=== PATIENT | male | born 1975 | race Caucasian/White ===

== ENCOUNTER → 2022-06-27 13:57 | Outpatient (BNVA) | payer BC, SELFPAY | PROVIDERS: Visit Provider Psychiatry & Neurology Neurology | DX: Z13.89 Encounter for screening for other disorder (principal) ==

== ENCOUNTER 2022-10-16 15:40 | Outpatient (AMB) | payer BC, SELFPAY ==
[2022-10-16 15:42] VITALS: BP 122/70; PULSE 81; O2SAT 98; BMI 28.1
--- NOTE | 2022-10-16 15:42 | MHC.OFFVIS ---
Intake Vital Signs 10/16/22 15:42 Height 5 ft 10 in Weight 196 lb BMI 28.1 BP 122/70 Blood Pressure Location Rt brachial Position Sitting Pulse 81 Pulse Source Pulse Oximeter Pulse Oximetry (%) 98 Intake Visit Reasons: 2m follow up Migraine Intake Note: pt is here for 2 month f/u and BOTOX Pocket Secretary Assembler Required: No Accompanied by: Self / Same As Patient Allergies No Known Allergies Allergy (Verified 10/16/22 15:42) Medication List - Last Reconciled 10/16/22 by Kenna Landaverde MD cyclobenzaprine 1-2 tabs orally bedtime; dextroamphetamine-amphetamine 10 mg (Adderall) 10 mg PO TID lorazepam 1 mg PO BEDTIME PRN melatonin 3 mg PO BEDTIME PRN testosterone cypionate 100 mg IM Q2W HPI HPI Comments History of Present Illness Details ? 47y/o male comes for treatment of migraines with botox. ??? Most frequent reported adverse reactions following injection of botox for chronic migraine include neck pain (9%), headache(5%), eyelid ptosis(4%), migraine(4%), muscular weakness(4%), musculuskeletal stiffness(4%), bronchitis(3%), injection site pain (3%), musculoskeletal pain(3%), myalgia(3%), facial paresis(2%), HTN(2%) and muscle spasms(2%) were discussed in detail. ??? Botulinum toxin typeA 200units Lot no [id number] expiration May 2025 was diluted with 4 cc of normal saline . ??? Muscles injected- ??? Frontalis 4 sites ??? Procerus 1 site ??? Back Hoe Operator- 2 sites ??? Temporalis- 8 sites ? Cervical paraspinals- 4 sites ??? Trapezius- 6 sites- 10 units each Left masseter- 20 units right zygomaticus 10 units ??? 5 units each in 31 site ??? Total use- 185units ??? Discarded-15units [facility] Medical History (Updated 10/16/22 @ 16:11 by Kenna Landaverde MD) ADD (attention deficit disorder) Chronic migraine without aura Insomnia Migraine Neck pain Snoring Spasmodic torticollis Surgical History Hx of LASIK Family History Mother Diabetes Hyperlipidemia Social History Alcohol intake: current Patient Tobacco Use Status: Never used Tobacco Physical Exam Vital Signs: Last Vital Signs Pulse 81 10/16/22 15:42 BP 122/70 10/16/22 15:42 Pulse Ox 98 10/16/22 15:42 BMI result Body Mass Index 28.1 Const General: cooperative, healthy appearing and comfortable Nutritional Appearance: average body habitus Orientation/consciousness: patient oriented x3 HEENT Head: Yes normal to inspection Eyes Pupils: Equal, round and reactive pupils present Neck Other: tenderness in left splenius, levator trapezius Neuro General: patient oriented x3, tone normal, moves all extremities and no focal motor deficits Cranial nerves: Yes Facial sensation intact/muscles of mastication intact, Yes Equal, round and reactive pupils present, Yes Bilaterally intact EOM present, Yes Nystagmus not present, Yes Normal facial strength present and Yes Midline tongue present Cognition (Neuro): normal cognition Gait exam (Neuro): Normal gait present Coordination: oarftb-ap-fltb test normal Psych Affect: Anxious affect present Office Procedures Botulinum toxin Injection 85003 - Migraine Procedure code (CPT) selection complete Office Meds onabotulinumtoxinA Performing Provider: Kenna Landaverde MD Administered by: Kenna Landaverde MD on 10/16/22 16:12 Dose Route Admin Location Lot Number Expiration Date [facility] Manager Women 185 unit subcut [id number] 05/02/25 0009-5971-67 ALLERGAN/BOTOX Comments: see HPI Assessment & Plan Assessment & Plan (1) Chronic migraine without aura: Code(s): G43.709 - Chronic migraine without aura, not intractable, without status migrainosus (2) Spasmodic torticollis: Code(s): G24.3 - Spasmodic torticollis Plan Patient tolerated the procedure well He will call with any side effects Orders: Orders AMB Botulinum toxin Injection Today G24.3 - Spasmodic torticollis, G43.709 - Chronic migraine without aura, not intractable, without status migrainosus Coding Level of Care Code Est Pt Level 1 (01115) Diagnoses Chronic migraine without aura G43.709 Spasmodic torticollis G24.3 CPT Codes Botox Injection - Botox 3: 65606 - Migraine ([id number])
== END 2022-10-16 16:08 | disposition home or self-care (01) ==
PROVIDERS: Visit Provider Psychiatry & Neurology Neurology
DX: G43.709 Chronic migraine without aura, not intractable, without status migrainosus (principal)
CPT/HCPCS: 64615

== ENCOUNTER → 2022-10-16 15:40 | Outpatient (BNVA) | payer BC, SELFPAY | PROVIDERS: Visit Provider Psychiatry & Neurology Neurology | DX: G43.709 Chronic migraine without aura, not intractable, without status migrainosus (principal); G24.3 Spasmodic torticollis; Z79.899 Other long term (current) drug therapy | CPT/HCPCS: 64615; 99211; J0585 ==

== ENCOUNTER 2022-11-29 15:29 | Outpatient (AMB) | payer BC, SELFPAY ==
--- NOTE | 2022-11-29 15:30 | MHC.PC.OV ---
Vital Signs 11/29/22 15:33 Height 5 ft 10 in Weight 192 lb 8 oz BMI 27.6 BP 100/70 Blood Pressure Location Lt brachial Position Sitting Pulse 79 Pulse Source Pulse Oximeter Pulse Oximetry (%) 97 Oxygen Delivery Method Room Air Intake Visit Reasons: Checkup, lab requests, etc. (been a few years) Intake Note: Patient is here today for re-establishing care. Complaint of headaches and requesting lab order. Furniture Packer Required: No Technical Publications Manager: Not Required per policy Accompanied by: Self / Same As Patient Allergies No Known Allergies Allergy (Verified 11/29/22 16:10) Medication List - Last Reconciled 11/29/22 by Francisco Cortes MD dextroamphetamine-amphetamine 10 mg (Adderall) 10 mg PO TID lorazepam 1 mg PO BEDTIME PRN melatonin 3 mg PO BEDTIME PRN testosterone cypionate 100 mg IM Q2W Tobacco use date assessed: 11/29/22 Dental Screening Dental Screen Date: 11/29/22 Did you have a dental visit in the last 12 months?: Yes Did you have a dental problem in the last 6 months where you did not have access to dental care?: No Was dental information given to patient?: Patient has dentist HPI Checkup, lab requests, etc. (been a few years) HPI Details 47-year-old male presents to the office to reestablish his care. Patient was last seen a few years ago. Patient has history of anxiety and sees a psychiatrist. Patient takes Adderall and and anxiolytics. He also sees a urologist for testosterone replacement. Patient has intermittent headaches and sees a neurologist. He has been receiving Botox injections and the last injection he received was in September. Continues to have pain in the left temporal area. Patient is anxious as his mother had history of memory deficits. Patient works at a [employer] and is able to do all activities of daily living [facility]LY [facility], [facility] Medical History (Updated 10/16/22 @ 16:11 by Kenna Landaverde MD) ADD (attention deficit disorder) Chronic migraine without aura Insomnia Migraine Neck pain Snoring Spasmodic torticollis Surgical History Hx of LASIK Family History (Updated 11/29/22 @ 15:31 by LETHA Castillo) Mother Diabetes Hyperlipidemia Social History (Updated 11/29/22 @ 15:39 by LETHA Castillo) Housing: House Alcohol intake: current Alcohol intake frequency: holidays/special occasions only Patient Tobacco Use Status: Never used Tobacco e-Cigarette/Vaping Use: Never Used Second Hand Smoke Exposure: No service: No Current occupational status: employed 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 1. Little interest or pleasure in doing things: not at all 2. Feeling down, depressed, or hopeless: not at all 3. Trouble falling or staying asleep, or sleeping too much: not at all 4. Feeling tired or having little energy: not at all 5. Poor appetite or overeating: not at all 6. Feeling bad about yourself - or that you are a failure or have let yourself or your family down: not at all 7. Trouble concentrating on things, such as reading the newspaper or watching television: not at all 8. Moving or speaking so slowly that other people could have noticed. Or the opposite - being so fidgety or restless that you have been moving around a lot more than usual: not at all 9. Thoughts that you would be better off or of hurting yourself in some way: not at all Total score: 0 Depression Screening Interpretation: Negative Source: Developed by Drs. Efrem Faith, Mckenzie Lackey, Bryn Barrow and colleagues, with an educational carmelita from [employer]. Thrive Questionnaire Date Thrive assessed: 11/29/22 I am a: Patient What is your living situation today?: I have a steady place to live Within the past 12 months, did the food you bought not last and you didn't have the money to get more?: Never true Within the past 12 months, did you worry whether your food would run out before you got money to buy more?: Never true Do you have trouble paying for medicines?: No Do you have trouble getting transportation to medical appointments?: No Do you have trouble paying your heating and electricity bill?: No Do you have trouble taking care of your child, family member or friend?: No Do you have trouble with day-to-day activities such as bathing, preparing meals, shopping, managing finances, etc.?: No Are you currently unemployed and looking for a job?: No Are you interested in more education?: No Currently or been in a relationship where the following occur: no concerns reported AUDIT C Alcohol Use Questionnaire (AUDIT-C) 1. How often do you have a drink containing alcohol?: Monthly or less Total Score: 1 RENE-7 AMB Questionnaire RENE-7 Date RENE - 7 assessed: 11/29/22 Feeling nervous, anxious, or on edge: 0 = Not at all Not being able to stop or control worryin = Not at all Worrying too much about different things: 0 = Not at all Trouble relaxin = Not at all Being so restless that it is hard to sit still: 0 = Not at all Becoming easily annoyed or irritable: 0 = Not at all Feeling afraid as if something awful might happen: 0 = Not at all Total RENE-7 score (0-4 normal; 5-9 mild; 10-14 moderate; 15-21 severe): 0 Source: Developed by Drs. Efrem Faith, Mckenzie Lackey, Bryn Barrow and colleagues, with an educational carmelita from [employer]. Physical exam (Primary Care) Vital Signs: Last Vital Signs Pulse 79 11/29/22 15:33 BP 100/70 11/29/22 15:33 Pulse Ox 97 11/29/22 15:33 Oxygen Delivery Method Room Air 11/29/22 15:33 BMI result Body Mass Index 27.6 Tobacco/Smoking Status: Tobacco use Status Tobacco use date assessed 11/29/22 11/29/22 15:40 Patient Tobacco Use Status Never used Tobacco 11/29/22 15:40 e-Cigarette/Vaping Use Never Used 11/29/22 15:40 PHQ-9: PHQ-9 Score PHQ-9: Total score 0 11/29/22 15:40 Depression Screening Interpretation: Negative Thrive Assessment: Date of Thrive Assessment Date Thrive assessed 11/29/22 11/29/22 15:40 Currently or been in a relationship where the following occur: no concerns reported Const General: cooperative, healthy appearing and comfortable HENMT Head: Yes normal to inspection and Yes atraumatic Eyes General: appearance normal, both eyes and all related structures Neck Neck: Yes normal visual inspection and Yes full ROM Chest Chest palpation & inspection: normal inspection of the chest Resp Effort & Inspection: normal respiratory effort Auscultation: clear to auscultation bilaterally Cardio Jugular venous distension: no JVD Palpation: normal PMI Rate: regular rate Heart sounds: S1 normal heart sound present and S2 normal heart sound present GI Palpation (GI): Soft to palpation and No hepatosplenomegaly present Extrem General: Yes normal to inspection and Yes full ROM Assessment and Plan Assessment & Plan (1) Chronic migraine without aura: Code(s): G43.709 - Chronic migraine without aura, not intractable, without status migrainosus Plan: A CT scan of the head has been scheduled. Patient had blood work done any shared the results from the urologist. There is mild elevation of serum creatinine which can be followed. Lipid panel and TSH has been ordered. A screening colonoscopy has been ordered. Orders: Orders Lipid Panel Today G43.709 - Chronic migraine without aura, not intractable, without status migrainosus Liver Panel Today G43.709 - Chronic migraine without aura, not intractable, without status migrainosus Thyroid Stimulating Hormone Today G43.709 - Chronic migraine without aura, not intractable, without status migrainosus Erythrocyte Sedimentation Rate Today G43.709 - Chronic migraine without aura, not intractable, without status migrainosus CT head/brain wo IV con Today G43.709 - Chronic migraine without aura, not intractable, without status migrainosus Referrals Gastroenterology Referral Z12.11 - Encounter for screening for malignant neoplasm of colon Coding Level of Care Code New Pt Level 4 (18638) Diagnoses Chronic migraine without aura G43.709
[2022-11-29 15:33] VITALS: BP 100/70; PULSE 79; O2SAT 97; BMI 27.6
== END 2022-11-29 15:55 | disposition home or self-care (01) ==
PROVIDERS: Visit Provider Internal Medicine
DX: G43.709 Chronic migraine without aura, not intractable, without status migrainosus (principal)
CPT/HCPCS: 99204

== ENCOUNTER 2022-11-29 15:58 | Outpatient (REF) | payer BC, SELFPAY ==
[2022-11-29 17:11] LABS: Erythrocyte Sedimentation Rate 2 MM/HR (0-15)
[2022-11-29 17:22] LABS: Alanine Aminotransferase 29 U/L (0-40); Albumin Level 4.7 g/dL (3.5-5.0); Alkaline Phosphatase 56 U/L (39-117); Aspartate Amino Transferase 21 U/L (5-37); Bilirubin Direct 0.1 mg/dL (0.0-0.5); Bilirubin Total 0.4 mg/dL (0.0-1.0); Cholesterol 198 mg/dL (<200); HDL Cholesterol 52 mg/dL (>40); LDL Cholesterol Calculated 101 mg/dL (<100); Total Protein 7.1 g/dL (6.5-8.0); Triglycerides 225 mg/dL (<150)
[2022-11-29 17:32] LABS: Thyroid Stimulating Hormone 1.77 uIU/mL (0.32-4.0)
== END 2022-11-29 15:59 | disposition home or self-care (01) ==
LOC: HO.LAB 15:58
PROVIDERS: PCP Internal Medicine; Visit Provider Internal Medicine
DX: G43.709 Chronic migraine without aura, not intractable, without status migrainosus (principal); E78.00 Pure hypercholesterolemia, unspecified
CPT/HCPCS: 36415; 80061; 80076; 84443; 85652

== ENCOUNTER 2023-01-08 09:12 | Outpatient (REF) | payer BC, SELFPAY | END 2023-01-08 09:13 | disposition home or self-care (01) | LOC: HO.CT 09:12 | PROVIDERS: PCP Internal Medicine; Visit Provider Internal Medicine | DX: G43.709 Chronic migraine without aura, not intractable, without status migrainosus (principal) | CPT/HCPCS: 70450 ==

== ENCOUNTER 2023-01-17 14:59 | Outpatient (AMB) | payer BC, SELFPAY ==
--- NOTE | 2023-01-17 14:54 | MHC.OFFVIS ---
Intake Vital Signs 01/17/23 15:03 Height 5 ft 10 in Weight 197 lb 8 oz BMI 28.3 BP 132/76 Blood Pressure Location Rt brachial Position Sitting Respiration 15 Pulse 75 Pulse Source Pulse Oximeter Pulse Oximetry (%) 99 Oxygen Delivery Method Room Air Intake Visit Reasons: botox (B&B) Intake Note: Pt presents to office for Botox injections. Allergies No Known Allergies Allergy (Verified 01/17/23 15:02) Medication List - Last Reconciled 01/17/23 by Kenna Landaverde MD dextroamphetamine-amphetamine 10 mg (Adderall) 10 mg PO TID lorazepam 1 mg PO BEDTIME PRN melatonin 3 mg PO BEDTIME PRN testosterone cypionate 100 mg IM Q2W HPI HPI Comments History of Present Illness Details ? 47y/o male comes for treatment of migraines with botox. ??? Most frequent reported adverse reactions following injection of botox for chronic migraine include neck pain (9%), headache(5%), eyelid ptosis(4%), migraine(4%), muscular weakness(4%), musculuskeletal stiffness(4%), bronchitis(3%), injection site pain (3%), musculoskeletal pain(3%), myalgia(3%), facial paresis(2%), HTN(2%) and muscle spasms(2%) were discussed in detail. ??? Botulinum toxin typeA 200units Lot no [id number] expiration May 2025 was diluted with 4 cc of normal saline . ??? Muscles injected- ??? Frontalis 4 sites ??? Procerus 1 site ??? Construction And Maintenance Inspector- 2 sites ??? Temporalis- 8 sites ? Cervical paraspinals- 4 sites ??? Trapezius- 6 sites- 10 units each Left masseter- 20 units Yves zygomaticus 10 units ??? 5 units each in 31 site ??? Total use- 195units ??? 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[employer] Cognitive needs: No Hearing needs: No Vision needs: No Physical Exam Vital Signs: Last Vital Signs Pulse 75 01/17/23 15:03 Resp 15 01/17/23 15:03 BP 132/76 01/17/23 15:03 Pulse Ox 99 01/17/23 15:03 Oxygen Delivery Method Room Air 01/17/23 15:03 BMI result Body Mass Index 28.3 Const General: cooperative, healthy appearing and comfortable Nutritional Appearance: average body habitus Orientation/consciousness: patient oriented x3 HEENT Head: Yes normal to inspection Eyes Pupils: Equal, round and reactive pupils present Neck Other: tenderness in left splenius, levator trapezius Neuro General: patient oriented x3, tone normal, moves all extremities and no focal motor deficits Cranial nerves: Yes Facial sensation intact/muscles of mastication intact, Yes Equal, round and reactive pupils present, Yes Bilaterally intact EOM present, Yes Nystagmus not present, Yes Normal facial strength present and Yes Midline tongue present Cognition (Neuro): normal cognition Gait exam (Neuro): Normal gait present Coordination: lvozlt-qc-udso test normal Psych Affect: Anxious affect present Office Procedures Botulinum toxin Injection 94210 - Migraine Procedure code (CPT) selection complete Office Meds onabotulinumtoxinA 200 unit solution for injection Performing Provider: Kenna Landaverde MD Performing Location: [facility] Administered by: Kenna Landaverde MD on 01/17/23 15:38 Dose Route Admin Location Dispensed Lot Number Expiration Date [facility] 185 unit subcut 200 units [id number] 05/02/25 [id number] ALLERGAN/BOTOX Assessment & Plan Assessment & Plan (1) Chronic migraine without aura: Code(s): G43.709 - Chronic migraine without aura, not intractable, without status migrainosus (2) Spasmodic torticollis: Code(s): G24.3 - Spasmodic torticollis Plan Patient tolerated the procedure well He will call with any side effects Will consider emgality , aimovig or ajovy Orders: Orders AMB Botulinum toxin Injection Today G43.709 - Chronic migraine without aura, not intractable, without status migrainosus Coding Level of Care Code Est Pt Level 1 (66900) Diagnoses Chronic migraine without aura G43.709 Spasmodic torticollis G24.3 CPT Codes Botox Injection - Botox 3: 22145 - Migraine ([id number])
[2023-01-17 15:03] VITALS: BP 132/76; PULSE 75; RESP 15; O2SAT 99; BMI 28.3
== END 2023-01-17 15:35 | disposition home or self-care (01) ==
PROVIDERS: Visit Provider Psychiatry & Neurology Neurology
DX: G43.709 Chronic migraine without aura, not intractable, without status migrainosus (principal)
CPT/HCPCS: 64615

== ENCOUNTER → 2023-01-17 14:59 | Outpatient (BNVA) | payer BC, SELFPAY | PROVIDERS: Visit Provider Psychiatry & Neurology Neurology | DX: G43.709 Chronic migraine without aura, not intractable, without status migrainosus (principal); G24.3 Spasmodic torticollis | CPT/HCPCS: 64615; 99211; J0585 ==

== ENCOUNTER 2023-02-11 09:02 | Outpatient (AMB) | payer BC, SELFPAY ==
--- NOTE | 2023-02-11 09:11 | A.OFFVIS_ITS ---
Intake Vital Signs 02/11/23 09:16 Height 5 ft 10 in Weight 190 lb BMI 27.3 BP 129/63 Blood Pressure Location Lt brachial Position Sitting Pulse 86 Intake Visit Reasons: Colonoscopy Screening Intake Note: Patient new consult for 1st pre colonoscopy screening. Patient cc: abdominal bloating, denies any other GI issues. General Manager [employer] Data Cloud Required: No Accompanied by: Self / Same As Patient Allergies No Known Allergies Allergy (Verified 02/11/23 09:11) Medication List - Last Reconciled 02/11/23 by Holly Bundy PA-C dextroamphetamine-amphetamine 10 mg (Adderall) 10 mg PO TID lorazepam 1 mg PO BEDTIME PRN melatonin 3 mg PO BEDTIME PRN testosterone cypionate 100 mg IM Q2W HPI HPI Comments History of Present Illness Details 47-year-old male referred for index scre ening colonoscopy No Known family history GI cancer Of abdominal bloating otherwise no GI concerns Bowels are normal Appetite is good No respiratory or cardiac issues Nausea, vomiting, hematemesis, hematochezia fever chills PFSH Medical History Chronic migraine without aura Spasmodic torticollis Snoring Neck pain Migraine Insomnia ADD (attention deficit disorder) Surgical History Hx of LASIK Family History Mother Diabetes Hyperlipidemia Social History Housing: House Alcohol intake: current Alcohol intake frequency: holidays/special occasions only Patient Tobacco Use Status: Never used Tobacco e-Cigarette/Vaping Use: Never Used Second Hand Smoke Exposure: No service: No Current occupational status: employed 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[employer] Cognitive needs: No Hearing needs: No Vision needs: No Review of Systems Const All systems reviewed & are unremarkable except as noted in HPI and below Card Denies chest pain and Denies dyspnea Resp Denies dyspnea GI Denies abdominal pain, Reports bloating, Denies hematochezia, Denies change in stool character, Denies heartburn, Denies nausea and Denies vomiting Physical Exam Vital Signs: Last Vital Signs Pulse 86 02/11/23 09:16 BP 129/63 02/11/23 09:16 BMI result Body Mass Index 27.3 Const General: cooperative, healthy appearing, comfortable and no acute distress Limitations: no limitations Eyes Sclerae: sclerae normal Resp Effort & Inspection: normal respiratory effort and able to speak in complete sentences Auscultation: clear to auscultation bilaterally, no rales, no rhonchi and no wheezes Cardio Rate: regular rate Rhythm: regular rhythm Heart sounds: S1 normal heart sound present and S2 normal heart sound present GI Palpation (GI): Soft to palpation and nontender Auscultation: normal bowel sounds Skin General skin exam: no rashes or lesions noted Extrem General: Yes full ROM Psych Appearance: grossly normal and well kempt Mental Status: mental status grossly normal Speech and movement: Normal speech and movement present and Clear speech present Affect: normal affect Attitude: cooperative Thought process: Normal thought process present Thought content: Normal thought content present Insight: Good insight present (Psych) Judgement: Good judgement present (Psych) Assessment & Plan Assessment & Plan (1) Bloating symptom: Code(s): R14.0 - Abdominal distension (gaseous) Plan: low fodmap (2) Encounter for screening colonoscopy: Code(s): Z12.11 - Encounter for screening for malignant neoplasm of colon Plan: index screening Plan Index screening MG- Orders: Orders Colonoscopy - GI Use Only Today Z12.11 - Encounter for screening for malignant neoplasm of colon Medications: New 2 polyethylene glycol 3350 (Miralax) Take as directed by mouth the day before your procedure. 238 grams PO ONCE PRN 238 grams 0RF laxative effect 1 day bisacodyl (Dulcolax (bisacodyl)) Day before procedure, prep day Take 4 tablets by mouth upon awakening followed by large glass of water 20 mg (4 x 5 mg) PO ONCE 4 tabs 0RF colonoscopy prep 1 day Z12.11 - Encounter for screening for malignant neoplasm of colon Patient Instructions: Very pleasant 47-year-old male referred for index screening colonoscopy. Abdominal bloating, discussed low FODMAP literature given Reviewed colonoscopy, indications, need for escorted due to anesthesia, rare risks and MiraLax Gatorade prep literature Opportunity for question Encouraged to call for questions or concerns Appreciate the opportunity assist adri Sheppard Coding Level of Care Code New Pt Level 3 (97983) Diagnoses Bloating symptom R14.0 Encounter for screening colonoscopy Z12.11 Time Spent (min) 30
[2023-02-11 09:16] VITALS: BP 129/63; PULSE 86; BMI 27.3
== END 2023-02-11 10:02 | disposition home or self-care (01) ==
PROVIDERS: PCP Internal Medicine; Visit Provider Physician Assistant
DX: R14.0 Abdominal distension (gaseous) (principal); Z12.11 Encounter for screening for malignant neoplasm of colon
CPT/HCPCS: 99203

== ENCOUNTER → 2023-02-11 09:02 | Outpatient (BNVA) | payer BC, SELFPAY | PROVIDERS: PCP Internal Medicine; Visit Provider Physician Assistant ==

== ENCOUNTER 2023-06-20 08:50 | Day surgery (SDC) | payer BC, SELFPAY ==
[2023-06-18 12:25] VITALS: BMI 27.3
--- NOTE | 2023-06-19 09:08 | HO.ANESPROP2 ---
Documented by User: Nurys Valdovinos NP 06/19/23 09:09 HPI - Anesthesia Eval Consult details Narrative: 48yo M for Colonoscopy PMFSH Active Problems Active Problems: All Active Problems (Updated 02/11/23 @ 09:20 by Holly Bundy PA-C) Encounter for screening colonoscopy (Acute) Bloating symptom (Acute) Chronic migraine without aura (Acute) Spasmodic torticollis (Acute) Snoring (Acute) Neck pain (Acute) Migraine (Acute) Insomnia (Acute) ADD (attention deficit disorder) (Acute) Past Medical History Medical History Chronic migraine without aura Spasmodic torticollis Snoring Neck pain Migraine Insomnia ADD (attention deficit disorder) Family History Family History Mother Diabetes Hyperlipidemia Surgical History Surgical History Hx of [facility] Social History Social History Housing: House Alcohol intake: current Alcohol intake frequency: holidays/special occasions only Patient Tobacco Use Status: Never used Tobacco e-Cigarette/Vaping Use: Never Used Second Hand Smoke Exposure: No Use of substances other than those prescribed or required for medical reasons: No Are you DNR?: No Advance Directives: No Advance Directives Information Provided: Yes service: No Current occupational status: employed Current occupation: [employer] of [employer] Cognitive needs: No Hearing needs: No Vision needs: No Meds Allergies Allergy/AdvReac Type Severity Reaction Status Date / Time No Known Allergies Allergy Verified 06/20/23 09:02 Home Medications Medication Instructions Recorded Confirmed Last Taken Type dextroamphetamine-amphetamine 10 10 mg PO TID 06/27/22 06/18/23 Unknown History mg tablet (Adderall) lorazepam 1 mg tablet 1 mg PO BEDTIME PRN Anxiety 06/27/22 06/18/23 Unknown History melatonin 3 mg capsule 3 mg PO BEDTIME PRN Insomnia 06/27/22 06/18/23 Unknown History testosterone cypionate 200 mg/mL 100 mg IM Q2W 06/27/22 06/18/23 Unknown History intramuscular oil Exam Height,Weight and Vital Signs: Height 5 ft 10 in Weight 86.183 kg Assessment and Plan Assessment Anesthesia Assessment: Chart Reviewed Documented by User: Jasmyne Alexander MD 06/20/23 10:10 PMFSH Active Problems Active Problems: All Active Problems (Updated 06/20/23 @ 09:20 by Jasmyne Alexander MD) Encounter for screening colonoscopy (Acute) Bloating symptom (Acute) Chronic migraine without aura (Acute) Spasmodic torticollis (Acute) Snoring (Acute). Denies [place] Neck pain (Acute) Insomnia (Acute) ADD (attention deficit disorder) (Acute) Past Medical History Medical History Chronic migraine without aura Spasmodic torticollis Snoring Neck pain Migraine Insomnia ADD (attention deficit disorder) Family History Family History Mother Diabetes Hyperlipidemia Family history of problems with anesthesia: No Surgical History Surgical History Hx of LASIK History of Problems with Anesthesia: No Social History Social History Housing: House Alcohol intake: current Alcohol intake frequency: holidays/special occasions only Patient Tobacco Use Status: Never used Tobacco e-Cigarette/Vaping Use: Never Used Second Hand Smoke Exposure: No Use of substances other than those prescribed or required for medical reasons: No Are you DNR?: No Advance Directives: No Advance Directives Information Provided: Yes service: No Current occupational status: employed Current occupation: [employer] Cognitive needs: No Hearing needs: No Vision needs: No Meds Allergies Allergy/AdvReac Type Severity Reaction Status Date / Time No Known Allergies Allergy Verified 06/20/23 09:02 Home Medications Medication Instructions Recorded Confirmed Last Taken Type dextroamphetamine-amphetamine 10 10 mg PO TID 06/27/22 06/18/23 Unknown History mg tablet (Adderall) lorazepam 1 mg tablet 1 mg PO BEDTIME PRN Anxiety 06/27/22 06/18/23 Unknown History melatonin 3 mg capsule 3 mg PO BEDTIME PRN Insomnia 06/27/22 06/18/23 Unknown History testosterone cypionate 200 mg/mL 100 mg IM Q2W 06/27/22 06/18/23 Unknown History intramuscular oil Exam Height,Weight and Vital Signs: Height 5 ft 10 in Weight 86.183 kg Vital Signs Temp Pulse Resp BP Pulse Ox O2 Del Method 06/20/23 09:21 98.5 F 90 15 138/76 99 Room Air Airway Mallampati Class: II TM Dist: >3cm Neck ROM: Full Loose/Missing/Broken Teeth: No (Cap top front - intact. Denies broken or missing teeth) Heart: RRR Lungs: CTAB Assessment and Plan Assessment Anesthesia Assessment: Anesthesia Plan Discussed and Chart Reviewed Final Anesthetic Review Family History of Problems with Anesthesia: No History of Problems with Anesthesia: No NPO: Yes ASA Class: II Final Preanesthetic Review: No Changes in Pt Med Stat, Meds/Allgs Chart Reviewed, Consent Obtained/Reviewed and Anes Risks/Benef Reviewed Patient Risk: Low Procedure Risk: Low Assessment/Block/Sedation in SS: Assess/Block/Sedation-SS Anesthetic Plan Anesthetic Plan: MAC: and TIVA Disposition: Standard PACU
--- NOTE | 2023-06-20 09:04 | MHC.SHP ---
Pre-Procedural Eval Section A - 24 Hr Update-Section A only Date of Service: 06/20/23 Section B - Complete if H&P > 30 days Chief Complaint: Encounter for screening for malignant neoplasm of Relevant Family History (Specify if Yes): No Relevant Social History: None Present Medications: see Short Stay Collaborative assessment Medical History: Significant History (Chronic migraine without aura Spasmodic torticollis Snoring Neck pain Migraine Insomnia ADD (attention deficit disorder)) History of Previous Operations: Relevant previous surgery/procedure and date(s) (Hx of LASIK) Allergies: Allergies Allergy/AdvReac Type Severity Reaction Status Date / Time No Known Allergies Allergy Verified 06/20/23 09:02 Review of Systems Sugical H&P ROS: Negative: Constitution, Cardiovascular, Respiratory, Neurological, Psychiatric, Hem-Onc, Allergic/Immunologic, Gastrointestinal, Genitourinary, Musculoskeletal, Integumentary, Endocrine and Eyes/Ears/Nose/Throat Exam Surgical H&P Exam: Normal: HEENT, Normal: Heart, Normal: Lungs, Normal: Extremities, Normal: Abdomen, Normal: Skin and Normal: Neurological Plan Diagnosis/Plan: Unchanged I have reviewed the history and physical and performed a pertinent physical examination on my patient. No changes have occurred unless specified. Time Spent With Patient Time: Total time managing care of this patient today ____ minutes.
[2023-06-20 09:07] VITALS: BMI 26.5
[2023-06-20 09:21] VITALS: BP 138/76; PULSE 90; RESP 15; TEMP 36.9; O2SAT 99
[2023-06-20] MEDS: Lactated Ringers 1,000 ML 100 ML IVCONT (09:37)
--- NOTE | 2023-06-20 10:04 | W.PM.OPN ---
Operative Note Operative Note Date of Service: 06/20/23 Narrative: Operative Information Procedure Description: Colonoscopy Indication: screening Anesthesia: MAC COLONOSCOPY Instrument: Olympus variable stiffness pediatric scope 190L Colonoscopy Monitoring: Vital signs and clinical assessment, continuous EKG monitoring, Pulse oximetry, Carbon Dioxide monitoring and blood pressure monitoring were done throughout the procedure. Colon withdrawal time was 12 minutes. Procedure: The patient was placed in the left lateral decubitis position and pre-procedure medications were administered. After a digital rectal examination of the ano-rectum, the video colonoscope was inserted into the rectum and advanced through the colon to the cecum/TI. The colonoscope was slowly withdrawn in a retrograde panoramic fashion and the colon mucosa was carefully examined including a retroflexed view of the rectum. Findings and interventions are described below. Procedure Difficulty: easy Findings: Terminal Ileum-normal Cecum: 6-8 mm sessile polyp removed with cold snare Ascending Colon: normal Transverse Colon - 6-8 mm sessile polyp removed with cold snare Descending Colon:normal Sigmoid Colon: mild diverticulosis with some mucosal hypertrophy Rectum: Retroflexion with small internal hemorrhoids seen, grade I Anorectum - normal Intervention: cold snare polypectomy Colon preparation: [place] Bowel Preparation Scale Right colon; 2 Transverse colon: 3 Left colon; 3 (0 = Unprepared colon segment with mucosa not seen due to solid stool that cannot be cleared. 1 = Portion of mucosa of the colon segment seen, but other areas of the colon segment not well seen due to staining, residual stool and/or opaque liquid. 2 = Minor amount of residual staining, small fragments of stool and/or opaque liquid, but mucosa of colon segment seen well. 3 = Entire mucosa of colon segment seen well with no residual staining, small fragments of stool or opaque liquid) Impression and Post Procedure Diagnosis: diverticulosis colon polyps internal hemorrhoids Plan: High fiber diet leaflet Avoid straining at stool, epsom salts and sitz bath, anusol supps or cream Repeat Colonoscopy in 5 years due to adenomatous appearing polyps or earlier if clinically indicated Above findings were reviewed with the patient and relevant handouts were provided if indicated.
[2023-06-20 10:35] VITALS: BP 119/62; PULSE 84; RESP 16; TEMP 36.9; O2SAT 99
[2023-06-20 10:50] VITALS: BP 120/76; PULSE 70; RESP 20; TEMP 36.8; O2SAT 100
== END 2023-06-20 11:16 | disposition home or self-care (01) ==
PROVIDERS: PCP Physician Assistant; Visit Provider Internal Medicine Gastroenterology
PROC: 0DJD8ZZ Inspection of Lower Intestinal Tract, Via Natural or Artificial Opening Endoscopic (ICD-10-PCS; CPT 45378; principal; 2023-06-20 10:20)
DX: Z12.11 Encounter for screening for malignant neoplasm of colon (principal); R14.0 Abdominal distension (gaseous); D12.0 Benign neoplasm of cecum; D12.3 Benign neoplasm of transverse colon; K57.30 Diverticulosis of large intestine without perforation or abscess without bleeding; K64.0 First degree hemorrhoids; G43.709 Chronic migraine without aura, not intractable, without status migrainosus; G24.3 Spasmodic torticollis; R06.83 Snoring; G47.00 Insomnia, unspecified; Z79.899 Other long term (current) drug therapy; F98.8 Other specified behavioral and emotional disorders with onset usually occurring in childhood and adolescence
CPT/HCPCS: 45385; 88305; J2704

== ENCOUNTER → 2023-06-20 08:50 | Outpatient (BNV) | payer BC, SELFPAY | PROVIDERS: PCP Physician Assistant; Visit Provider Internal Medicine Gastroenterology | DX: Z12.11 Encounter for screening for malignant neoplasm of colon (principal); D12.0 Benign neoplasm of cecum; D12.3 Benign neoplasm of transverse colon; K57.30 Diverticulosis of large intestine without perforation or abscess without bleeding; K63.89 Other specified diseases of intestine; K64.0 First degree hemorrhoids | CPT/HCPCS: 45385 ==